=== PATIENT | female | born 1980 ===

== ENCOUNTER 2018-10-04 08:22 | Emergency (ER) | payer OTHER ==
[~2018-10-04] VITALS: Ht 162.6 cm; Wt 55.3 kg
[~2018-10-04 08:22] MED LIST: IUD; OBTREX PRENATAL1 TAB PO
== END 2018-10-04 10:38 | disposition home or self-care (01) ==
LOC: ER 08:22
DX: M94.0 Chondrocostal junction syndrome [Tietze] (principal); R10.9 Unspecified abdominal pain

== ENCOUNTER 2022-08-15 14:40 | Outpatient (CLI) | payer OTHER | END 2022-08-15 14:50 | disposition home or self-care (01) | LOC: PPH VACUNA 14:40 | PROVIDERS: ATTEND Emergency Medicine Pediatric Emergency Medicine | DX: Z23 Encounter for immunization (principal) ==